=== PATIENT | female | born 1975 | race Caucasian/White ===

== ENCOUNTER 2017-01-01 23:55 | Emergency (ER) | payer MEDICAID, OTHER ==
--- NOTE | 2017-01-02 00:16 | ED Physician Chart ---
Chief Complaint/HPI - Patient Information Date Seen:: 01/02/17 Time Seen:: 00:07 Chief Complaint:: dental pain History of Present Illness:: pt here for pain at upper incisors bilat x 2 days. no fever. no trouble w breathing/swallowing. pain is now causing a headache. pt denies routine use of pain meds. no apt to see denitst yet. pt says is afraid of dentist. no facial swelling. no change voice. no n/v/d. no stiff neck. no rash. pt says friend dropped her off here tonight Allergies:: Allergies Allergy/AdvReac Type Severity Reaction Status Date / Time No Known Allergies Allergy Verified 01/01/17 23:59 Vitals:: Vital Signs - 8 hr 01/01/17 23:55 Temp 97.8 F HR 80 RR 18 BP 138/78 O2 Sat % 100 Historian:: Patient Review of Systems - Review of Systems General/Constitutional: No fever, No chills, No weight loss, No weakness, No diaphoresis, No edema, No loss of appetite Skin: No skin lesions, No rash, No bruising Head: No headache, No light-headedness Eyes: No loss of vision, No pain, No diplopia ENT: No earache, No nasal drainage, No sore throat, No tinnitus, Other (dental pain) Neck: No neck pain, No swelling, No thyromegaly, No stiffness, No mass noted Cardio Vascular: No chest pain, No palpitations, No PND, No orthopnea, No edema Pulmonary: No SOB, No cough, No sputum, No wheezing GI: No nausea, No vomiting, No diarrhea, No pain, No melena, No hematochezia, No constipation, No hematemesis G/U: No dysuria, No frequency, No hematuria Musculoskeletal: No bone or joint pain, No back pain, No muscle pain Endocrine: No polyuria, No polydipsia Psychiatric: No prior psych history, No depression, No anxiety, No suicidal ideation Hematopoietic: No bruising, No lymphadenopathy Allergic/Immuno: No urticaria, No angioedema Neurological: No syncope, No focal symptoms, No weakness, No paresthesia, No headache, No seizure, No dizziness, No confusion, No vertigo Past Medical History - Past Medical History Past Medical History: No significant medical hx, Other (prior dental caries) Social History: Smoker Medication: Reviewed Physical Exam - Physical Examination General/Constitutional: Awake, Well-developed, well-nourished, Alert, No distress, GCS 15, Non-toxic appearing, Ambulatory Head: Atraumatic Eyes: Lids, conjuctiva normal, PERRL, EOMI Skin: Nl inspection, No rash, No skin lesions, No ecchymosis, Well hydrated, No lymphadenopathy ENMT: External ears, nose nl, Nasal exam nl, Lips, teeth, gums nl Other ENMT comments:: pt has sev deg teeth and much prior fillings. the central upper incisors appear relatively nrml w no open pulp and no surrounding erythema or abscess. left lat canine is sev deg of tooth. Neck: Nontender, Full ROM w/o pain, No JVD, No nuchal rigidity, No bruit, No mass, No stridor Respiratory: Nl effort/Exclusion, Clear to Auscultation, No Wheeze/Rhonchi/Rales Cardio Vascular: RRR, No murmur, gallop, rubs, NL S1 S2 GI: No tenderness/rebounding/guarding, No organomegaly, No hernia, Normal BS's, Nondistended, No mass/bruits, No McBurney tenderness : No CVA tenderness Extremities: No tenderness or effusion, Full ROM, normal strength in all extremities, No edema, Normal digits & nails Neuro/Psych: Alert/oriented, DTR's symmetric, Normal sensory exam, Normal motor strength, Judgement/insight normal, Mood normal, Normal gait, No focal deficits Misc: normal gait, Normal back, No paraspinal tenderness ED Septic Shock - . Is Septic Shock (SBP<90, OR Lactate>4 mmol\L) present?: No - <6hrs of presentation: Vital Signs: Vital Signs - 8 hr 01/01/17 23:55 Temp 97.8 F HR 80 RR 18 BP 138/78 O2 Sat % 100 Reassessment (Disposition) - Reassessment Reassessment Condition:: Unchanged - Diagnosis Diagnosis:: dental pain ...suspect dental carries - Aftercare/Follow up Instructions Aftercare/Follow-Up Instructions:: Counseled pt regarding lab results/diagnosis & need follow up Notes:: advised see dentist rakesh. Medication Prescribed:: rx [id number] no [id number] , pcn v - Patient Disposition Discharge/Transfer:: Home Condition at Disposition:: Unchanged
== END 2017-01-02 00:20 | disposition home or self-care (01) ==
LOC: ER 23:55
DX: K08.89 Other specified disorders of teeth and supporting structures (principal); F17.200 Nicotine dependence, unspecified, uncomplicated
CPT/HCPCS: Z7502